=== PATIENT | female | born 1955 | race African-American/Black ===

== ENCOUNTER 2019-08-07 15:05 | Emergency (ER) | payer MEDICARE, MEDICAID ==
[~2019-08-07] VITALS: Ht 172.7 cm; Wt 94.3 kg
[~2019-08-07 15:05] MED LIST: LIDO700A; TRAM50TA
[2019-08-07 15:18] VITALS: BP 148/80
== END 2019-08-07 17:53 | disposition left against medical advice (07) ==
LOC: ER 15:05
DX: Z53.21 Procedure and treatment not carried out due to patient leaving prior to being seen by health care provider (principal)